=== PATIENT | female | born 1990 | race Caucasian/White ===

== ENCOUNTER 2019-06-11 00:21 | Outpatient (CLI) | payer MEDICAID ==
[~2019-06-11] VITALS: Ht 160 cm; Wt 82.0 kg
[~2019-06-11 00:21] MED LIST: PREN1TAB62 PO
[2019-06-11 00:39] VITALS: BMI 41.7
[2019-06-11 00:40] VITALS: BP 103/54; PULSE 81; RESP 16; Ht 160 cm; Wt 82.0 kg
--- NOTE | 2019-06-12 09:36 | PN ---
Triage Information Date/Time late entry note for 06/11/2019 Reason for visit: Abd/pelvic pain Weeks of Gestation at 30+wks ga ALEYDA 08/16/2021 presents with right sided abdominal pain She reports positive movement, denies uterine contractions, denies vaginal bleeding or leaking fluid /Para Diabetes: none Hypertention: none Objective Vital Signs Date Temp Pulse Resp B/P (MAP) Pulse Ox O2 O2 Flow FiO2 Time Delivery Rate 06/11/19 97.8 81 16 103/54 Room Air 00:40 (70) Heart Rate: 140's Heart Rate Comments FHR tracing cat 1 Contractions: None Results/Medications Imaging Results PROCEDURE: Abdominal ultrasound, limited. CLINICAL INDICATION: Abdominal pain. TECHNIQUE: Multiple real-time images were acquired of the patient's right upper abdomen utilizing a high resolution transducer. COMPARISON: None FINDINGS: The liver demonstrates normal echogenicity and size measuring 16.3 cm. There is no focal mass or intrahepatic biliary ductal dilatation. The gallbladder is contracted. No gallstones are identified. There is no pericholecystic fluid or gallbladder wall thickening. The common bile duct measures 4.1 mm in maximal dimension. The visualized portions of the pancreas are unremarkable. No free fluid is identified. The right kidney is normal size and echogenicity measuring 10.0 cm. There is no focal renal mass or echogenic calculus identified. There is no obstructive uropathy. IMPRESSION: Unremarkable right upper abdominal ultrasound. .Sincere Velazco MD, MD Date Time Electronically viewed and signed by .Sincere Velazco MD, MD on 06/11/2019 01:38 .T/ CC: AMNA MALDONADO MD [id number] PROCEDURE: Biophysical profile. CLINICAL INDICATION: Pelvic pain. TECHNIQUE: Multiple sonographic images of the pelvis were obtained with transabdominal technique. Endovaginal evaluation of the cervix was also performed. COMPARISON: No prior studies are available for comparison. FINDINGS: There is a single living intrauterine gestation with the fetus in a vertex position. The placenta is right lateral in location, grade 1. heart tones of 144 beats per minute are identified. There is normal amniotic fluid volume with an SYLVESTER of 11.1 cm. The cervix is closed measuring 3.9 cm. breathing movements = 2 Gross body movements = 2 tone = 2 Qualitative AFV = 2 IMPRESSION: Biophysical profile 8 out of 8. .Sincere Velazco MD, MD Date Time Electronically viewed and signed by .Sincere Velazco MD, MD on 06/11/2019 01:39 .T/ CC: AMNA MALDONADO MD [phone] Disposition: Discharge Assessment/Plan kick count instructions were given labor precautions were given patient instructed to f/u with obgyn clinic in 1-2 days AMNA MALDONADO MD Jun 12, 2019 09:36
== END 2019-06-11 03:15 | disposition home or self-care (01) ==
LOC: OBT 00:21 → L-D 00:22 → OBT 03:15
PROVIDERS: ATTEND Specialist
DX: O26.893 Other specified pregnancy related conditions, third trimester (principal); R10.9 Unspecified abdominal pain; Z3A.30 30 weeks gestation of pregnancy
CPT/HCPCS: 76705; 76817; 76818; 81001; G0463